=== PATIENT | female | born 1960 | race Caucasian/White ===

== ENCOUNTER 2024-12-30 08:54 | Outpatient (CLI) | payer OTHER, SELFPAY ==
--- OUTSIDE RECORDS SUMMARY | 2024-12-30 09:10 | XMS_ITS | Clinical Summary ---
Author Organization [facility] Address [address] [place] [address] Care Team Providers Care Road Machine Operator Name Role Phone Unavailable Primary Care Provider Unavailabl e Source Comments [facility],non-owned Affiliates and Associated Physician Practices is amultiple site organization consisting of ambulatory clinics and hospital sitesin [place], [place], [place] and [place]. This disclosure is being madepursuant to the Care Everywhere program and may not contain all information available regarding this patient. Last updated 18.[facility] Social History Tobacco Use Types Packs/Day Years Used Date Smoking Tobacco: Never Assessed Sex and Gender Information Value Date Recorded Sex Assigned at Not on file Gender Identity Not on file Sexual Orientation Not on file Plan of Treatment Health Maintenance Due Date Last Done Comments COLOGUARD (AGES 45-75) - COL ON CA SCREENING 1960 COLON MONITORING 1960 COLONOSCOPY - COLON CA SCREENING 1960 CT COLONOGRAPHY - COLON CA SCREENING 1960 Colorectal Cancer Screening 1960 FIT - COLON CA SCREENING 1960 FLEX SIG - COLON CA SCREENING 1960 LIPID TESTING 1960 MAMMOGRAM 1960 PAP SMEAR 1960 HIV SCREENING 1975 HEPATITIS C SCREENING 10/30/1978 DTAP/TDAP/TD VACCINES (1 - Tdap) 1979 PNEUMOCOCCAL VACCINE 50+ (1 of 1 - PCV) 2010 ZOSTER VACCINE (1 of 2) 2010 COVID-19 VACCINE ( - 2023-2 5 season) 2024 INFLUENZA VACCINE (#1) 2024 DEPRESSION SCREENING 11/15/2024 Respiratory Syncytial Virus (RSV) Vaccine Pt: or over 60 yrs (1 - 1-dose 75+ series) 2035 HEPATITIS B VACCINE Aged Out No longe r eligible based on patient's age to complete this topic HIB VACCINE Aged Out No longer eligi ble based on patient's age to complete this topic HPV VACCINE Aged Out No longer eligi ble based on patient's age to complete this topic MENINGOCOCCAL (Group B) VACCINE Aged Out No longer eligible based on patient's age to complete this topic MENINGOCOCCAL VACCINE Aged Out No rodo jenifer eligible based on patient's age to complete this topic PNEUMOCOCCAL VACCINE Aged Out No long er eligible based on patient's age to complete this topic
--- OUTSIDE RECORDS SUMMARY | 2024-12-30 09:10 | XMS_ITS | Referral Summary ---
Author Organization [facility] Address [address] [place] [address] Care Team Providers Care Vendor Specialist Name Role Phone Unavailable Primary Care Provider Unavailabl e Source Comments [facility],non-owned Affiliates and Associated Physician Practices is amultiple site organization consisting of ambulatory clinics and hospital sitesin [place], [place], [place] and [place]. This disclosure is being madepursuant to the Care Everywhere program and may not contain all information available regarding this patient. Last updated 18.[facility] [employer] Social History Tobacco Use Types Packs/Day Years Used Date Smoking Tobacco: Never Assessed Sex and Gender Information Value Date Recorded Sex Assigned at Not on file Gender Identity Not on file Sexual Orientation Not on file Plan of Treatment [place] [address]
--- OUTSIDE RECORDS SUMMARY | 2024-12-30 09:10 | XMS_ITS | Patient Health Summary ---
Author Organization [facility] Address [address] [place] [address] Care Team Providers Care Software Security Architect Name Role Phone Unavailable Primary Care Provider Unavailabl e Note from [facility],non-owned Affiliates and Associated Physician Practices is amultiple site organization consisting of ambulatory clinics and hospital sitesin [place], [place], [place] and [place]. This disclosure is being madepursuant to the Care Everywhere program and may not contain all information available regarding this patient. Last updated 18.[facility] Social History Tobacco Use Types Packs/Day Years Used Date Smoking Tobacco: Never Assessed Sex and Gender Information Value Date Recorded Sex Assigned at Not on file Gender Identity Not on file Sexual Orientation Not on file Procedures * SARS-COV-2 (COVID-19) IN HOUSE(Performed 09/16/2020) Performed for Exposure to SARS-associated coronavirus * SARS-COV-2 (COVID-19) PANEL (SOIL)(Performed 09/16/2020) Performed for Exposure to SARS-associated coronavirus Results * (ABNORMAL) SARS-COV-2 (COVID-19) IN HOUSE (09/16/2020 4:19 PM FRAME TABLE OPERATOR HELPER) COVID-19 PCR Detected( AA) Not detected 09/17/2020 1:32 PM FRAME TABLE OPERATOR HELPER [facility] Microbiology SPECIMEN FROM NASOPHARYNGEAL STRUCTURE / Unknown Collection / Unknown 09/16/2020 4:19 PM FRAME TABLE OPERATOR HELPER 09/16/2020 4:19 PM FRAME TABLE OPERATOR HELPER Narrative [facility] - 09/17/2020 1:32 PM FRAME TABLE OPERATOR HELPER This nucleic acid amplification assay performance was validated by [facility]. This test has been authorized by the Food and Drug administration (FDA)under an Emergency Use Authorization (EUA). This test has been validated in accordance with the FDA's guidance document Policy for Diagnostic Testing in Laboratories Certified to perform High Complexity Testing under CLIA prior to Emergency Use Authorization for Coronavirus Disease-2019 during the Public Health Emergency issued on January 13, 2020. FDA independent review of this validation is pending. This test is only authorized for the duration of time the declaration that circumstances exist justifying the authorization of emergency use of in vitro diagnostic tests for detection of SARS-CoV-2 virus and/or diagnosis of COVID-19 infection under section 564(b)(1) of the Act, 21 U.S.C 360bbb-3 (b)(1), unless the authorization is terminated or revoked sooner. Fact Sheets for this EUA assay are available upon request. Lissy Craig FIRE ALARM MECHANIC-CHANNEL INSTALLER LAB - [facility] ORDERABLES [facility] [address] [place], [place] [address], [facility] [phone]
--- NOTE | 2024-12-30 09:12 | ECG_ITS ---
Test Date: 2024-12-30 09:22:14 Measurements Intervals [place] Rate: 78 P: 71 DE: 148 QRS: 88 QRSD: 89 T: 67 QT: 369 QTc: 420 Interpretive Statements SINUS RHYTHM BORDERLINE T WAVE ABNORMALITY- ANTERIOR LEADS BORDERLINE ECG No previous ECG available for comparison Electronically Signed On 12-30-2024 11:24:28 SEALER DRY CELL by Dominick Dos Santos D.O.
== END 2024-12-30 08:55 | disposition home or self-care (01) ==
LOC: ANHCARD 09:08
PROVIDERS: Visit Provider Surgery Plastic and Reconstructive Surgery
DX: I10 Essential (primary) hypertension (principal); Z01.818 Encounter for other preprocedural examination
CPT/HCPCS: 93005

== ENCOUNTER 2025-01-02 00:31 | Day surgery (SDC) | payer OTHER, SELFPAY ==
[2024-12-26 12:45] VITALS: BMI 27.4
--- NOTE | 2024-12-26 12:46 | PC.NURSE ---
Report to the Outpatient Waiting Room, entrance under the green pavilion located off [facility], at time _1000_ on date _[id number]_. Planned Procedure Time: _1200_.? Time changes happen often and if your time is changed the preop area will call you the afternoon before. - You and your visitor will be asked to self-screen and do not enter if you have any COVID symptoms. Please call surgeon if you need to reschedule. - A mask is optional within the hospital at this time. Patients may have clear liquids (water, carbonated beverages, clear teas, apple juice) until 3 hours prior to surgery with a maximum of 20 ounces. - No food from midnight until time of surgery and no smoking, or chewing tobacco (or any form of nicotine). No chewing gum, candy or mints. Take only the following medications with a SIP of water on the morning of surgery: ___Metoprolol DO NOT STOP ANY OF YOUR OTHER PRESCRIPTION MEDICATIONS PRIOR TO SURGERY EXCEPT THE FOLLOWING Hold all vitamins and supplements for 3 days per anesthesiologist. Medications to discontinue per physician ___None Please no make-up, nail yi, hairspray, perfume, deodorant, or body powder the day of surgery.? No jewelry (including any body piercings) or valuables the day of surgery, leave them at home.? Please take a shower or bath the night before, or the morning of, surgery with an antibacterial soap.? Wear comfortable, loose fitting clothing.? - Jewelry must be removed prior to entering the operating room.? Rings and piercings that are not removed may be cut off. - The hospital will not accept responsibility for valuables.? - Please leave all valuables, including medications, at home the day of surgery. If you are going home after surgery, a licensed transporter driver must drive you home.? - NO public transportation without another adult if you receive anesthesia. - We recommend that an adult stay with you for 24 hours following discharge. - We also recommend that you do not drive, make important decision, drink alcoholic beverages, or take any drugs that were not prescribed by your health care provider for at least 24 hours after your discharge time. Follow any additional instructions given to you from your surgeon. Telephone instructions given to _Antoinette___and asked if any additional questions and then verbalized understanding. Patient advised to call surgeon office or pre surgery nurse liaison [phone] if any additional questions.
[2025-01-02] VITALS (9 sets, daily range): BP systolic 130–160; BP diastolic 74–87; PULSE 74–108; RESP 16–24; TEMP 36.4–36.6; O2SAT 96–100; BMI 28.0
--- OUTSIDE RECORDS SUMMARY | 2025-01-02 00:33 | XMS_ITS | Referral Summary ---
Author Organization [facility] Address [address] [place] [address] Care Team Providers Care Computational Chemist Name Role Phone Unavailable Primary Care Provider Unavailabl e Source Comments [facility],non-owned Affiliates and Associated Physician Practices is amultiple site organization consisting of ambulatory clinics and hospital sitesin [place], [place], [place] and [place]. This disclosure is being madepursuant to the Care Everywhere program and may not contain all information available regarding this patient. Last updated 18.[facility] [employer] Social History Tobacco Use Types Packs/Day Years Used Date Smoking Tobacco: Never Assessed Sex and Gender Information Value Date Recorded Sex Assigned at Not on file Gender Identity Not on file Sexual Orientation Not on file Plan of Treatment Not [place] [address]
--- OUTSIDE RECORDS SUMMARY | 2025-01-02 00:33 | XMS_ITS | Patient Health Summary ---
Author Organization [facility] Address [address] [place] [place] [address] Care Team Providers Care Service Planner Name Role Phone Unavailable Primary Care Provider Unavailabl e Note from [facility],non-owned Affiliates and Associated Physician Practices is amultiple site organization consisting of ambulatory clinics and hospital sitesin [place], [place], [place] and [place]. This disclosure is being madepursuant to the Care Everywhere program and may not contain all information available regarding this patient. Last updated 18.[facility] Social History Tobacco Use Types Packs/Day [...] SARS-COV-2 (COVID-19) IN HOUSE (09/16/2020 4:19 PM LAYER OUT) COVID-19 PCR Detected( AA) Not detected 09/17/2020 1:32 PM LAYER OUT [facility] Microbiology SPECIMEN FROM NASOPHARYNGEAL STRUCTURE / Unknown Collection / Unknown 09/16/2020 4:19 PM LAYER OUT 09/16/2020 4:19 PM LAYER OUT Narrative [facility] - 09/17/2020 1:32 PM LAYER OUT This nucleic acid amplification assay performance was validated by [facility]. This test has been [...] assay are available upon request. Lissy Craig PROJECT ASSISTANT-FUEL OIL CLERK LAB - [facility] ORDERABLES [facility] [address] [place], [place] [address], [facility] [phone]
--- OUTSIDE RECORDS SUMMARY | 2025-01-02 00:33 | XMS_ITS | Clinical Summary ---
Author Organization [facility] [employer] Address [address] [place] [address] Care Team Providers Care Jigsaw Operator Name Role Phone Unavailable Primary Care Provider Unavailabl e Source Comments [facility] [employer],non-owned Affiliates and Associated Physician Practices is amultiple site organization consisting of ambulatory clinics and hospital sitesin [place], [place], [place] and [place]. This disclosure is being madepursuant to the Care Everywhere program and may not contain all information available regarding this patient. Last updated 18.[facility] [employer] Social History Tobacco Use Types Packs/Day Years [...]
--- OUTSIDE RECORDS SUMMARY | 2025-01-02 00:33 | XMS_ITS | Clinical Summary ---
Author Organization [facility] Address [address] [place] [address] Care Team Providers Care Mailroom Supervisor Name Role Phone None, Provider Primary Care Provider Unavaila ble Family History Medical History Relation Comments Breast Cancer Maternal Grandmother Breast Cancer Mother Relation Status Comments Maternal Grandmother Mother Social History Tobacco Use Types Packs/Day Years Used Date Smoking Tobacco: Never Assessed Comments Unknown Sex and Gender Information Value Date Recorded Sex Assigned at Not on file Legal Sex Female 5:35 PM CDT Gender Identity Not on file Sexual Orientation Not on file Plan of Treatment Health Maintenance Due Date Last Done Comments Cervical Cancer Screening Pap Smear (Age 30 to 64) Every 3 Years 1960 Colorectal Cancer Screening Colonoscopy (10 Years) 1960 Annual Physical 1963 Hepatitis C 1978 DTaP, Tdap and Td Vaccines (1 - Tdap) 1979 Zoster Vaccines (1 of 2) 2010 Cervical Cancer Screening Pap with HPV Testing (Age 30 to 64) Every 5 Years 06/02/2023 06/02/2018 Cervical Cancer Screening with HPV 06/02/2023 COVID-19 Vaccine ( season) 2024 11/17/2021, 02/20/2021 Influenza Adult (#1) 2024 08/27/2022, 08/15/2022, 08/21/2021 Mammogram Screening 03/24/2026 03/24/2024, 02/10/2023, 09/10/2021, Additional history exists RSV Immunization or 60+ Years (1 - 1-dose 75+ series) 2035 Meningococcal B Vaccine Aged Out No l onger eligible based on patient's age to complete this topic Meningococcal Vaccine Aged Out No rodo jenifer eligible based on patient's age to complete this topic Pneumococcal Vaccine: Pediatrics (0 to 5 Years) and At-Risk Patients (6 to 64 Years) Aged Out No longer eligible based on patient's age to complete this topic RSV Immunizations Under 20 Months Aged Out No longer eligible based on patient's age to complete this topic Procedures Procedure Name Priority Date/Time Associated Diagnosis Comments MG SCREENING IMPLANT W ANDRAE OREN DIGI Routine 03/24/2024 12:41 PM CDT Screening mammogram for breast cancer HPV MRNA E6/E7 Routine 06/02/2018 5:43 PM CDT from Last 3 Months or Most Recently Relevant to Health Maintenance Results * MG SCREENING IMPLANT W ANDRAE OREN DIGI (03/24/2024 12:41 PM CDT) Anatomical Region Laterality Modality Breast Bilateral Mammography 03/24/2024 1:37 PM CDT Impressions 03/24/2024 1:42 PM CDT IMPRESSION: No suspicious mammographic findings. Recommendation: 1. Routine Screening, Bilateral Assessment: ACR BI-RADS 2 - BENIGN FINDING(S) Comments: A negative or benign mammography report should not delay follow-up or biopsy of a clinically significant finding or palpable abnormality. Regions of dense breast tissue may obscure findings on mammogram. Ordered By: MAHSA MEJÍA Interpreted By: Souleymane Botello MD, 03/24/2024 1:37 PM Narrative 03/24/2024 1:42 PM CDT Examination: Screening bilateral mammogram with 3-D tomosynthesis Clinical history: Positive family history of breast cancer. No present breast related complaints. Bilateral breast implants Comparison: 02/10/2023, 09/10/2021, 08/29/2020, 07/20/2019 Technique: Digital screening mammography of both breasts was performed. 3-D tomosynthesis technique was also performed. This study was read with the assistance of computer-aided detection system. Tissue density: There are scattered areas of fibroglandular density. Findings: No suspicious masses, malignant appearing calcifications, skin thickening or other abnormalities are present. No significant change from the prior exam. Bilateral breast prosthesis are partially visualized. Mahsa Mejía [facility] Final Result * HPV MRNA E6/E7 (06/02/2018 5:43 PM CDT) HPV MRNA E6/E7 Not Detected NOT DETECTED 06/06/2018 8:47 AM CDT [employer] AARTI SINGH Comment: This test was performed using the APTIMA(R) HPV Assay([employer]This assay detects E6/E7 viral messenger RNA (mRNA)from 14 high-risk HPV types (16,18,31,33,35,39,45,51,52,56,58,59,66,68).For additional information please refer to:http://education.[employer]/faq/RQQ421b7(This link is being provided for informational/educational purposes only.)The analytical performance characteristics of thisassay have been determined by [employer] [place]. The modificationshave not been cleared or approved by the FDA. Thisassay has been validated pursuant to the CLIAregulations and is used for clinical purposes.Test Performed by [employer] [place],[employer] [facility],[address] [place] [id number] Hanson M.D., Ph.D., Director of [phone], CLIA [id number] FLUID SPECIMEN / Unknown 06/02/2018 5:43 PM CDT 06/02/2018 5:43 PM CDT Generic Juan J Navarro MD PATHOLOGY/CYTOLOGY FRANCISCO HERNANDEZ Final Result [facility] , from Last 3 Months or Most Recently Relevant to Health Maintenance Insurance [facility] Care Teams Mailroom Supervisor Relationship Specialty Start Date End Date None, Provider, PCP - General 07/04/19
[2025-01-02] MEDS: LACTATED RINGERS 1,000 ML 30 ML IV CONT ×2 (07:30→10:16)
--- NOTE | 2025-01-02 08:30 | WPDHPUPDATE1 ---
History and Physical Update Update Date/Time: 01/02/25 08:30 History and Physical has been reviewed, including an updated exam of the patient. There are NO changes in the patient's condition. Risks, benefits, and alternatives have been discussed and questions answered. Patient agrees to proceed with procedure.
--- NOTE | 2025-01-02 08:35 | P.PNAN_ITS ---
Anes - Initial Pre Proc Eval Procedure: Operation Date: 01/02/25 09:00 Proposed Procedures p Bilateral Breast Implant Exchange - Edwin Gamboa MD Date/Time: 01/02/25 08:35 Surgeon: Edwin Gamboa MD Pre Op Diagnosis: hx of breast augmentation Patient Data Age: 64 Gender: F Height: 1.73 m Weight: 83.7 kg Last Vital Signs Temp 36.6 C 01/02/25 06:56 Pulse 74 01/02/25 06:56 Resp 16 01/02/25 06:56 BP 160/87 H 01/02/25 06:56 Pulse Ox 100 01/02/25 06:56 Allergies Allergy/AdvReac Type Severity Reaction Status Date / Time Penicillins Allergy Intermediate Rash Verified 01/02/25 07:46 Home Medications ?Medication ?Instructions ?Recorded ?Confirmed ?Type escitalopram oxalate 20 mg tablet 20 mg PO HS 12/26/24 01/02/25 History lisinopril 20 mg tablet 20 mg PO DAILY 12/26/24 01/02/25 History metoprolol succinate 25 mg 25 mg PO DAILY 12/26/24 01/02/25 History tablet,extended release 24 hr propranolol 10 mg tablet 10 mg PO TID PRN anxiety 12/26/24 01/02/25 History tirzepatide (weight loss) 7.5 7.5 mg subcut WEEKLY 12/26/24 12/26/24 History mg/0.5 mL subcutaneous pen injector (Zepbound) Patient hx anesthesia problems: none Family hx anesthesia problems: none Results Review: All pre-operative results and documents have been reviewed as part of the pre- operative evaluation. [facility] Past Medical History Medical History (Updated 01/01/25 @ 15:37 by Jerrod Cruz DO) Anxiety Hypertension Social History Social History Years smoked: 20 Smoking status: Former smoker Smoking end date: 12/26/14 Alcohol intake: current Drinks per week: 10 Substance use: current Substance use type: marijuana Living arrangements: with family Spiritual care concerns: No Anes - Eval Final PreProcedure Day of Procedure 01/02/25 08:35 Patient weight: overweight Heart: regular rate and rhythm Lungs: clear to auscultation Airway: Mallampati scale class II Neurological: alert and oriented Last oral intake: >/= 8 hours ASA classification: III Emergent: no Anesthetic plan: proceed Anesthesia type and monitoring: general LMA and standard monitoring Results Review: All pre-operative results and documents have been reviewed as part of the pre- operative evaluation. Informed Consent: The patient's anesthetic plan and its attendant risks and benefits were discussed with the patient/family/POA. Questions were solicited and answers provided to the satisfaction of the patient/family/POA.
--- NOTE | 2025-01-02 08:35 | W.PM.PROC2 ---
Procedure Note - Detailed Date of Procedure 01/02/25 Pre-op Diagnosis hx of breast augmentation Post-op Diagnosis Same Procedure Performed Bilateral breast implant exchange Surgeon Edwin Gamboa MD Anesthesia General Indications History of bilateral breast augmentation with right breast implant rupture Findings Previous implants: [id number] New implants: Bilateral Natrelle Saline 500cc filled to 540cc Right: REF# [id number] SN [id number] Left: REF# [id number] SN [id number] Description of Procedure Preoperatively the risks, benefits, alternatives were discussed in extensive detail. I wanted to be very realistic about the risks involved as well as expectations. I was clear about how we could actually make her worse. Answered all questions to satisfaction. Declines mastopexy. Voiced a clear understanding. Consent obtained. She was taken the operating room placed supine on the operating room table. Anesthesia provided by anesthesiology and prepped and draped in a standard sterile fashion. Surgical time-out was taken. 1% lidocaine and 0.25% Marcaine with epinephrine was used to provide a field block. Tegaderm nipple tsai were placed. Fifteen blade used to excise the previous IMF scars. Dissection was continued down until the capsules were identified and entered. Previous implants removed. No worrisome features. She had significant calcification of the capsules bilateral and significant portion of capsules were removed. No worrisome features noted. Copiously irrigated with saline solution and verified a strict hemostsis. Irrigated with Phase one and allowed to soak for a prolonged period of time. I then irrigated with Betadine containing solution. On the back table I prepped the implant to remove all air. It was introduced into the pocket and utilizing an implant fill kit filled to the volume above. The fill tubing was removed and I verified the valve sealed. This was closed with 2-0 PDS followed by 3-0 Monocryl and a running subcuticular 4-0 Monocryl followed by tissue glue. Dressings were placed. She was woken taken to the PACU without difficulty. All instrument sponge counts were correct at the end of the case. Estimated Blood Loss 50 Drains No Packing No Pathology None sent Complications No immediate complications Condition Stable Disposition PACU
[2025-01-02] MEDS: ceFAZolin 2 GM/D5W 50 ML 2 GM/50 ML BAG IVPB (08:49)
[2025-01-02] MEDS: TRANEXAMIC ACID 1,000MG/ISO100 1,000 MG/100 ML BAG 200 MG IVPB (08:56)
[2025-01-02] MEDS: NACL 0.9% IRRIG POUR BOTTLE 900 ML, GENTAMICIN SULFATE INJ 160 MG, CLINDAMYCIN PHOS INJ... IRRIGATION (09:10)
[2025-01-02] MEDS: BUPivacaine HCL 0.25% PF 10 ML VIAL 40 ML INFILTRATE (09:10)
[2025-01-02] MEDS: LIDO 1%/EPINEPHRINE 1:100,000 20 ML VIAL 40 ML INFILTRATE (09:11)
[2025-01-02] MEDS: fentaNYL CITRATE INJ (*CRX) 100 MCG/2 ML VIAL 25 MCG IV PUSH ×2 (10:31→10:35)
[2025-01-02] MEDS: oxyCODONE HCL (*CRX) 5 MG TAB IR PO (11:52)
== END 2025-01-02 12:22 | disposition home or self-care (01) ==
PROVIDERS: Visit Provider Surgery Plastic and Reconstructive Surgery
PROC: (CPT 19370; principal; 2025-01-02 09:00)
DX: Z41.1 Encounter for cosmetic surgery (principal); I10 Essential (primary) hypertension; F41.9 Anxiety disorder, unspecified; F12.90 Cannabis use, unspecified, uncomplicated; Z79.85 Long-term (current) use of injectable non-insulin antidiabetic drugs; Z87.891 Personal history of nicotine dependence
CPT/HCPCS: 19370; 19325; A9270; J0461; J0690; J1100; J1580; J1596; J2004; J2250; J2405; J2704; J3010; J7120